=== PATIENT | male | born 1955 | race African-American/Black ===

== ENCOUNTER 2017-10-19 17:02 | Emergency (ER) | payer OTHER ==
[~2017-10-19] VITALS: Ht 170.2 cm; Wt 93.9 kg
--- NOTE | ~2017-10-19 | EKG ---
[address] [place] [employer] [address] ELECTROCARDIOGRAM REPORT Name: CHIDI CARD Room #: REG RITESH Ríos#: [id number] Admission: 10/19/17 Attend Phys: Discharge: Date of : 59 Report #: [id number] THIS REPORT FOR: //name// [facility] ED Test Date: 2017-10-19 Test Time: 17:30:30 Pat Name: CHIDI CARD Department: Room: Gender: Advanced Practice Psychiatric Nurse: kristin : 1955 Requested By: Tom Dawson Order Number: [id number] MD: Nico Maynard Measurements Intervals [place] Rate: 83 P: 32 UT: 184 QRS: -39 QRSD: 102 T: 86 QT: 350 QTc: 412 Interpretive Statements Sinus rhythm Probable left atrial enlargement Left axis deviation Borderline ST elevation, anterior leads Compared to ECG 05/24/2013 16:24:16 Left-axis deviation now present ST (T wave) deviation now present T-wave abnormality no longer present Electronically Signed On 10-19-2017 21:21:01 CDT by Nico Maynard [email or web address] <ELECTRONICALLY SIGNED> By: Nico Maynard MD 10/19/17 2121 1730 1730 Nico Maynard MD /EPI
[~2017-10-19 17:02] MED LIST: ADULTS' DAILY1 EACH; ARTIFICIAL TEAR15 M1 OPHTHALMIC; ATENOLOL 25 MG25 M1 PO; ATENOLOL 50MG T50 M1 PO; ATIVAN1 MG PO; CIPROFLOXACIN500 M1 PO; CITRATE OF MAG296 ML PO; CLONAZEPAM; CLONAZEPAM 0.50.5 M1 PO; CLONAZEPAM 1 MG1 M1 PO; COMBIVENT INH; CONSTULOSE10 GM/152; CONSTULOSE10 GM/152 PO; DEPAKENE250 MG PO; DEPAKOTE ER500 MG PO; EUCERIN CREME120 GM; EUCERIN CREME57 GM; FLEET ENEMA118 ML; GLYCOLAX POWDER17 G1; HYDROCORTISONE3011; IBUPROFEN 600600 M1 PO; LIDOCAINE; LIDODERM; LIDODERM 5%1 PATC1; LIDODERM 5%1 PATCH; LORAZEPAM 22 MG/1 ML IM; MELOXICAM7.5 MG; MINERIN CREME454 GM; MIRALAX255 GM PO; MOM PO; MULTIVITAMINS1 EAC7 PO; NEURONTIN 300300 M1 PO; NYSTATIN15 GM; OLANZAPINE15 MG PO; OLANZAPINE5 MG PO; ONE DAILY MULT1 EAC2 PO; PREPARATION H26 GM TP; PRINIVIL20 MG PO; RANITIDINE 150150 M1 PO; SELSUN BLUE 1%118 ML; SEROQUEL 25 MG25 M1 PO; SEROQUEL 50 MG50 M1 PO; TRICOR48 MG PO; ZANTAC 150MG T150 M1; ZYPREXA5 MG PO; [UNRECOGNIZED DRUG - OTHER]
[2017-10-19 18:27] LABS: ABSOLUTE NEUTROPHILS 3.4 thou/uL (1.4-8.2); BASOPHILS 0.7 % (0.0-2.0); EOSINOPHILS 1.9 % (0.0-3.0); HEMATOCRIT 35.5 % (42.0-52.0); LYMPHOCYTES 38.7 % (24.0-44.0); MCH 30.4 pg (26.0-34.0); MCHC 33.7 g/dL (28.0-37.0); MCV 90.3 fL (80.0-100.0); MONOCYTES 8.1 % (1.0-8.0); PLATELET COUNT 348 thou/uL (150-400); POLYS 50.6 % (36.0-66.0); RBC 3.93 mil/uL (4.50-6.00); RDW 13.3 % (10.5-14.5); WBC 6.8 thou/uL (4.0-11.0)
[2017-10-19 18:33] LABS: ANION GAP 1 mmol/L (7-16); BUN 20 mg/dL (7-18); CALCIUM 9.4 mg/dL (8.5-10.1); CHLORIDE 97 mmol/L (98-107); CO2 34 mmol/L (21-32); CREATININE 1.1 mg/dL (0.7-1.3); GLUCOSE 115 mg/dL (74-106); POTASSIUM 4.7 mmol/L (3.5-5.1); SODIUM 132 mmol/L (136-145)
[2017-10-19 18:41] LABS: TROPONIN-I <0.06 ng/mL (<0.06)
[2017-10-19] MEDS ORDERED: MUCINEX600 MG PO (20:43)
[2017-10-19] MEDS ORDERED: PROVENTIL HFA6.7 G1 INH (20:43)
== END 2017-10-19 21:17 ==
LOC: ER 17:02
PROVIDERS: Physician Assistant
DX: R55 Syncope and collapse (principal); R05 Cough; J45.909 Unspecified asthma, uncomplicated; I10 Essential (primary) hypertension; F31.9 Bipolar disorder, unspecified; K21.9 Gastro-esophageal reflux disease without esophagitis; Z86.73 Personal history of transient ischemic attack (TIA), and cerebral infarction without residual deficits; Z88.0 Allergy status to penicillin

== ENCOUNTER 2017-10-21 10:49 | Inpatient (IN) | payer OTHER ==
[~2017-10-21] VITALS: Ht 170.2 cm; Wt 87.6 kg
--- NOTE | ~2017-10-21 | EEG ---
[facility] [address] [place] [address] ELECTROENCEPHALOGRAM Name: CHIDI CARD Room #: 451-P [facility] IN M.R.#: [id number] Admission: 10/21/17 Attend Phys: Dustin Brink MD Discharge: Date of : 59 Report #: [id number] THIS REPORT FOR: //name// CC: Dustin Brink [facility] DATE OF SERVICE: 10/21/2017 This patient is having altered mental status and episode of unresponsiveness. EEG was done by placing the electrodes by standard 10/20 system of electrode placement. Both referential and sequential montages were used for recording. Background activity in this patient's EEG is about 8 Hz and 30 microvolt. The patient went to sleep that is associated with bilateral slowing and vertex sharp waves. Even in the baseline, EEG appeared to be intermixed with theta range slowing on both sides. Photic stimulation was unremarkable. Throughout the record, no epileptiform activity was noticed. IMPRESSION: This patient's EEG is intermixed with some theta range slowing on both sides. That is a nonspecific abnormality, which can occur with dementia, encephalopathy, effect of psychotropic medication. No active epileptiform activity was noted during this record. Thank you very much for this referral. By: 1218 1321 Eber Waterman MD /nt
--- NOTE | ~2017-10-21 | HC ---
[facility] [place] [address] CONSULTATION Name: CHIDI CARD Room #: 451-P ADM IN M.R.#: [id number] Admission: 10/21/17 Attend Phys: Dustin Brink MD Discharge: Date of : 59 Report #: [id number] THIS REPORT FOR: //name// [facility] DATE OF SERVICE: 10/22/2017 HISTORY OF PRESENT ILLNESS: This is a 62-year-old male patient who was evaluated by me for altered mental status. This person does not provide any reliable history. I reviewed the patient's record and it looks like they were not able to arouse him and they brought him to Emergency Room on 10/19. They did a CT scan of the head on him at that time, which showed no acute process. It does show prior infarct and chronic changes. He was sent home. Then, he was admitted again on with similar episode. He is responsive now, but will not follow any commands and just keep talking irrelevantly. REVIEW OF SYSTEMS: I do not know what the baseline is. The patient is not unresponsive, but he does not follow any commands and keep talking irrelevantly. He is on multiple medications including clonazepam, lorazepam and Seroquel. A 14-point review of system was carried out, but that is exclusively from the record because he will not cooperate. He has a history of asthma, bipolar disorder, dysphagia, psychosis, hypertension, reflux disease. He has a history of seizure disorder, but he will not provide any history in that regard. He has a history of CVA. He does not know how it affected him. That is the relevant 14-point review of system, I can get on him. PAST MEDICAL HISTORY: Positive for stroke. Further history is not clear. FAMILY HISTORY: Unavailable. SOCIAL HISTORY: He lives in a care home. PHYSICAL EXAMINATION: Indicate he is alert. He can tell me what month or day it is. He talks and his speech looks understandable, but irrelevant. He had no memory or fund of knowledge. He does appear to have facial palsies, more on the left side. He moves all 4 extremities to some extent, but he is weak in all 4 extremities including both upper extremities. He does also appear to be spastic. He did not understand the instruction for cerebellar sign and he did not cooperate with the fundus examination. His cranial nerve examination 2-12 otherwise looks noncontributory. He is a well-developed individual who does not have any dysmorphic features of eyes, ears and face. His vision and hearing looks adequate. His pulses are difficult to feel. He has no edema, cyanosis or jaundice. Cardiac examination is unremarkable. No respiratory difficulty or rhonchi was noted. Blood pressure is 142/82, pulse is 100, temperature is 98. [address] [address] CONSULTATION Name: CHIDI CARD Room #: 451-P [facility] IN M.R.#: [id number] Admission: 10/21/17 Attend Phys: Dustin Brink MD Discharge: Date of : 59 Report #: [id number] LABORATORY DATA: Indicate sodium trace low at 131. His white count is normal. He did have a CT scan, which showed chronic changes, but no acute changes. IMPRESSION: I am not sure what the etiology of the patient's symptom is. I think this may be his baseline. I will await rest of the workup, especially EEG, but I do not think the etiology is going to be in the brain. I will suggest working up for systemic etiology. RECOMMENDATIONS: 1. EEG. 2. After the EEG, we will decide if we do an MRI of the brain and C-spine to look for any etiology there, we will need somebody to fill up his MRI sheet, which we do not have at the moment. 3. We will see how he does with PT, OT and we will decide about further management after that. Thank you very much for this referral. By: 1031 1558 Eber Waterman MD /nestor
--- NOTE | ~2017-10-21 | EKG ---
[address] [place] [place] [address] ELECTROCARDIOGRAM REPORT Name: CHIDI CARD Room #: 451-P [facility]..#: [id number] Admission: 10/21/17 Attend Phys: Dustin Brink MD Discharge: Date of : 59 Report #: [id number] THIS REPORT FOR: //name// [facility] ED Test Date: 2017-10-21 Test Time: 11:09:05 Pat Name: CHIDI CARD Department: Room: Gender: M Senior Specialist: : 1955 Requested By: Barry Morales Order Number: [id number] MD: Jayson Perdue Measurements Intervals [place] Rate: 86 P: 30 [place]: 183 QRS: -37 QRSD: 102 T: 82 QT: 334 QTc: 400 Interpretive Statements Sinus rhythm Leftward axis Poor R wave progression Repolarization abnormality Compared to ECG 10/19/2017 17:30:30 No significant change was found Electronically Signed On 10-21-2017 16:51:17 CDT by Jayson Perdue [email or web address] <ELECTRONICALLY SIGNED> By: Jayson Perdue MD, [facility] 10/21/17 1651 1109 1109 Jayson Perdue MD, [facility] /EPI
[~2017-10-21 10:49] MED LIST changes: +MUCINEX600 MG PO; +PROVENTIL HFA6.7 G1 INH
[2017-10-21 10:50] VITALS: BP 100/68
[2017-10-21 11:28] LABS: ABSOLUTE NEUTROPHILS 6.8 thou/uL (1.4-8.2); BASOPHILS 0.6 % (0.0-2.0); EOSINOPHILS 0.9 % (0.0-3.0); HEMATOCRIT 37.4 % (42.0-52.0); HEMOGLOBIN 12.4 gm/dL (14.0-18.0); MCH 30.2 pg (26.0-34.0); MCHC 33.1 g/dL (28.0-37.0); MCV 91.1 fL (80.0-100.0); MONOCYTES 8.8 % (1.0-8.0); PLATELET COUNT 348 thou/uL (150-400); POLYS 66.7 % (36.0-66.0); RBC 4.11 mil/uL (4.50-6.00); RDW 13.8 % (10.5-14.5); WBC 10.1 thou/uL (4.0-11.0)
[2017-10-21 11:45] LABS: ANION GAP 4 mmol/L (7-16); BUN 32 mg/dL (7-18); CALCIUM 9.2 mg/dL (8.5-10.1); CHLORIDE 98 mmol/L (98-107); CO2 29 mmol/L (21-32); CREATININE 1.6 mg/dL (0.7-1.3); GLUCOSE 99 mg/dL (74-106); POTASSIUM 5.1 mmol/L (3.5-5.1); SODIUM 131 mmol/L (136-145)
[2017-10-21 11:50] LABS: ALBUMIN 3.4 g/dL (3.4-5.0); MAGNESIUM 2.5 mg/dL (1.8-2.4); SGOT 15 U/L (15-37); SGPT 19 U/L (30-65); TOTAL BILIRUBIN 0.3 mg/dL (<0.1-1.0); TOTAL PROTEIN 8.2 g/dL (6.4-8.2); TROPONIN-I <0.06 ng/mL (<0.06)
[2017-10-21 13:53] LABS: URINE BILIRUBIN NEGATIVE (Negative); URINE BLOOD TRACE (Negative); URINE COLOR YELLOW; URINE GLUCOSE-RANDOM* NEGATIVE (Negative); URINE KETONES NEGATIVE (Negative); URINE LEUKOCYTES 3+ (Negative); URINE NITRITE NEGATIVE (Negative); URINE PROTEIN (DIPSTICK) TRACE (Negative); URINE SPECIFIC GRAVITY 1.015 (1.005-1.035); URINE UROBILINOGEN 0.2 E.U./dl (0.2-1.0)
[2017-10-21 13:54] LABS: URINE CLARITY HAZY
[2017-10-21] MEDS ORDERED: NAMENDA 10 MG T10 MG PO (14:04)
[2017-10-21] MEDS ORDERED: XANAX 0.25 MG0.25 MG PO (14:05)
[2017-10-21] MEDS ORDERED: DEPAKOTE 250MG250 M1 PO ×2 (14:06→14:12)
[2017-10-21] MEDS ORDERED: TOPROL XL25 MG PO (14:08)
[2017-10-21] MEDS ORDERED: EXELON1 EAC1 PO (14:08)
[2017-10-21] MEDS ORDERED: VIMPAT50 MG PO (14:09)
[2017-10-21] MEDS ORDERED: XANAX 0.5 MG0.5 M1 PO (14:10)
[2017-10-21] MEDS ORDERED: COMBIVENT INH (14:10)
[2017-10-21] MEDS ORDERED: TRAZODONE HCL50 MG PO (14:12)
[2017-10-21 14:13] LABS: CASTS None Seen /LPF (None Seen); MUCUS 0-3 Light strn/LPF (None Seen); SQUAMOUS None Seen /LPF (0-3); URINE RBC 0-2 Rare /HPF (0-2); URINE WBC >25 Many /HPF (0-5)
[2017-10-21] MEDS ORDERED: TYLENOL325 MG PO (14:13)
[2017-10-21 14:14] LABS: BACTERIA >30 Many /HPF (None Seen); CRYSTALS None Seen /LPF (None Seen); WBC CLUMPS Many (None Seen)
[2017-10-21 14:21] LABS: CHOLESTEROL 171 mg/dL (<200); HDL CHOLESTEROL 40 mg/dL (>40); LDL CHOLESTEROL 107 mg/dL (<100); TC:HDL 4.3 Ratio (Not establshd); TRIGLYCERIDE 121 mg/dL (<150); VLDL 24 mg/dL (<40)
[2017-10-21 14:47] LABS: TSH 0.426 uIU/mL (0.358-3.740)
[2017-10-21 15:00] VITALS: BP 103/65
[2017-10-21 15:38] VITALS: BP 121/64
[2017-10-21 16:40] VITALS: BP 121/94
[2017-10-21 19:21] VITALS: BP 103/64
[2017-10-22 03:30] VITALS: BP 138/76
[2017-10-22 08:00] VITALS: BP 142/82
[2017-10-22 16:00] VITALS: BP 140/76
[2017-10-22 19:46] VITALS: BP 130/87
[2017-10-23 06:34] VITALS: BP 107/73
[2017-10-23 08:00] VITALS: BP 163/81
[2017-10-23] MEDS ORDERED: CEFUROXIME250 MG PO (08:21)
[2017-10-23 16:27] VITALS: BP 135/72
== END 2017-10-23 18:29 | DRG 177 ==
LOC: ER 10:49 → 4W 13:27 → EROBS 13:27 → 4W 15:37
PROVIDERS: Emergency Medicine; Hospitalist
DX: J69.0 Pneumonitis due to inhalation of food and vomit (principal); G92 Toxic encephalopathy; J98.11 Atelectasis; N17.9 Acute kidney failure, unspecified; J45.909 Unspecified asthma, uncomplicated; F31.9 Bipolar disorder, unspecified; K21.9 Gastro-esophageal reflux disease without esophagitis; N18.9 Chronic kidney disease, unspecified; F41.9 Anxiety disorder, unspecified; I12.9 Hypertensive chronic kidney disease with stage 1 through stage 4 chronic kidney disease, or unspecified chronic kidney disease; E66.9 Obesity, unspecified; Z68.30 Body mass index [BMI] 30.0-30.9, adult; Z87.891 Personal history of nicotine dependence; Z86.73 Personal history of transient ischemic attack (TIA), and cerebral infarction without residual deficits; Z79.899 Other long term (current) drug therapy; Z88.0 Allergy status to penicillin; Z88.8 Allergy status to other drugs, medicaments and biological substances
CPT/HCPCS: 10040

== ENCOUNTER 2017-10-24 18:33 | Inpatient (IN) | payer OTHER ==
[~2017-10-24] VITALS: Ht 170.2 cm; Wt 94.6 kg
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
--- NOTE | ~2017-10-24 | EEG ---
[facility] [place] [address] ELECTROENCEPHALOGRAM Name: CHIDI CARD Room #: 363-P [facility] IN M.R.#: [id number] Admission: 10/24/17 Attend Phys: Dustin Brink MD Discharge: Date of : 59 Report #: [id number] THIS REPORT FOR: //name// CC: Glenny Hartman DATE OF SERVICE: 10/25/2017 This patient is being evaluated for altered mental status. EEG is done by placing the electrode by standard 10-20 system of electrode placement. Both referential and sequential montages were used for recording. Background activity in this patient's EEG is about 8 Hz and 30 microvolt. It is intermixed with theta range slowing on both sides. The patient goes to sleep that is associated with bilaterally symmetrical sleep spindle and vertex sharp waves. Photic stimulation is unremarkable. Throughout the record, no active epileptiform activity was noticed. IMPRESSION: This patient's EEG is intermixed with some theta range slowing, but no active epileptiform activity was noticed. Thank you very much for this referral. <ELECTRONICALLY SIGNED> By: Eber Waterman MD 10/31/17 1424 1734 1747 Eber Waterman MD /nt
--- NOTE | ~2017-10-24 | EKG ---
[address] [place] [address] ELECTROCARDIOGRAM REPORT Name: CHIDI CARD Room #: 363-P ADM IN M.R.#: [id number] Admission: 10/24/17 Attend Phys: Dustin Brink MD Discharge: Date of : 59 Report #: [id number] THIS REPORT FOR: //name// [facility] ED Test Date: 2017-10-24 Test Time: 18:45:32 Pat Name: CHIDI CARD Department: Room: Gender: M Drill Press Operator Helper: MICHELLE : 1955 Requested By: Barry Morales Order Number: [id number] MD: Jayson Perdue Measurements Intervals [place] Rate: 73 P: 27 [place]: 183 QRS: -27 QRSD: 95 T: 52 QT: 349 QTc: 385 Interpretive Statements Sinus rhythm Borderline left axis deviation Abnormal R-wave progression, early transition Baseline wander in lead(s) V1 Compared to ECG 10/21/2017 11:09:05 Poor R-wave progression no longer present Electronically Signed On 10-27-2017 9:09:49 CDT by Jayson Perdue [email or web address] <ELECTRONICALLY SIGNED> By: Jayson Perdue MD, [facility] 10/27/17 0909 1845 1845 Jayson Perdue MD, [facility] /EPI
[~2017-10-24 18:33] MED LIST changes: +CEFUROXIME250 MG PO; +DEPAKOTE 250MG250 M1 PO; +EXELON1 EAC1 PO; +NAMENDA 10 MG T10 MG PO; +TOPROL XL25 MG PO; +TRAZODONE HCL50 MG PO; +TYLENOL325 MG PO; +VIMPAT50 MG PO; +XANAX 0.25 MG0.25 MG PO; +XANAX 0.5 MG0.5 M1 PO
[2017-10-24 18:34] VITALS: BP 74/45
[2017-10-24 19:51] LABS: ABSOLUTE NEUTROPHILS 6.3 thou/uL (1.4-8.2); BASOPHILS 0.7 % (0.0-2.0); EOSINOPHILS 0.4 % (0.0-3.0); HEMATOCRIT 34.4 % (42.0-52.0); HEMOGLOBIN 11.8 gm/dL (14.0-18.0); LYMPHOCYTES 20.5 % (24.0-44.0); MCH 30.5 pg (26.0-34.0); MCHC 34.4 g/dL (28.0-37.0); MCV 88.6 fL (80.0-100.0); MONOCYTES 9.3 % (1.0-8.0); PLATELET COUNT 399 thou/uL (150-400); POLYS 69.1 % (36.0-66.0); RBC 3.88 mil/uL (4.50-6.00); RDW 13.4 % (10.5-14.5); WBC 9.1 thou/uL (4.0-11.0)
[2017-10-24 19:55] LABS: ANION GAP 9 mmol/L (7-16); BUN 45 mg/dL (7-18); CALCIUM 9.3 mg/dL (8.5-10.1); CHLORIDE 97 mmol/L (98-107); CO2 28 mmol/L (21-32); CREATININE 2.5 mg/dL (0.7-1.3); GLUCOSE 100 mg/dL (74-106); POTASSIUM 4.6 mmol/L (3.5-5.1); SODIUM 134 mmol/L (136-145)
[2017-10-24 20:04] LABS: ALBUMIN 3.5 g/dL (3.4-5.0); MAGNESIUM 2.3 mg/dL (1.8-2.4); SGOT 26 U/L (15-37); SGPT 23 U/L (30-65); TOTAL BILIRUBIN 0.2 mg/dL (<0.1-1.0); TOTAL PROTEIN 8.5 g/dL (6.4-8.2); TROPONIN-I <0.06 ng/mL (<0.06)
[2017-10-24 20:10] LABS: BE(vivo) -2.5 mmol/L (-2 to +3); HCO3 24.5 mmol/L (22.0-26.0); PCO2 52.1 mmHg (35.0-45.0); PO2 87.6 mmHg (80.0-100.0); sO2 95.6 % (92.0-98.0)
[2017-10-24 21:16] VITALS: BP 93/45
[2017-10-24 21:24] LABS: URINE BILIRUBIN NEGATIVE (Negative); URINE BLOOD NEGATIVE (Negative); URINE CLARITY CLEAR; URINE COLOR YELLOW; URINE GLUCOSE-RANDOM* NEGATIVE (Negative); URINE KETONES TRACE (Negative); URINE LEUKOCYTES-REFLEX 2+ (Negative); URINE NITRITE-REFLEX NEGATIVE (Negative); URINE PROTEIN (DIPSTICK) NEGATIVE (Negative); URINE SPECIFIC GRAVITY 1.015 (1.005-1.035); URINE UROBILINOGEN 0.2 E.U./dl (0.2-1.0)
[2017-10-24 21:33] LABS: AMP/METHAMP Negative (Negative); BARBITURATES Negative (Negative); BENZODIAZEPINES POSITIVE (Negative); COCAINE Negative (Negative); METHADONE Negative (Negative); OPIATES Negative (Negative); PCP Negative (Negative)
[2017-10-24 21:34] LABS: CASTS None Seen /LPF (None Seen); MUCUS None Seen strn/LPF (None Seen); SQUAMOUS None Seen /LPF (0-3); URINE RBC None Seen /HPF (0-2); WBC CLUMPS Few (None Seen)
[2017-10-24 21:35] LABS: BACTERIA-REFLEX 1-9 Few /HPF (None Seen); CRYSTALS None Seen /LPF (None Seen); HYALINE CASTS 0-3 Few /LPF (None Seen)
[2017-10-25] VITALS (7 sets, daily range): BP systolic 90–142; BP diastolic 57–83
[2017-10-25 02:29] LABS: HCO3 24.1 mmol/L (22.0-26.0); PCO2 52.3 mmHg (35.0-45.0); PO2 74.3 mmHg (80.0-100.0); pH 7.282 (7.360-7.450)
[2017-10-25 08:27] LABS: BE(vivo) -3.7 mmol/L (-2 to +3); HCO3 22.5 mmol/L (22.0-26.0); PCO2 45.4 mmHg (35.0-45.0); PO2 62.6 mmHg (80.0-100.0); pH 7.313 (7.360-7.450)
[2017-10-25 11:29] LABS: HEMOGLOBIN 11.1 gm/dL (14.0-18.0); MCH 30.7 pg (26.0-34.0); MCHC 34.7 g/dL (28.0-37.0); MCV 88.6 fL (80.0-100.0); RBC 3.62 mil/uL (4.50-6.00); RDW 13.4 % (10.5-14.5); WBC 7.1 thou/uL (4.0-11.0)
[2017-10-25 11:37] LABS: CALCIUM 8.7 mg/dL (8.5-10.1)
[2017-10-25 12:59] LABS: BE(vivo) -3.1 mmol/L (-2 to +3); HCO3 22.3 mmol/L (22.0-26.0); PCO2 41.3 mmHg (35.0-45.0); PO2 83.1 mmHg (80.0-100.0); pH 7.351 (7.360-7.450); sO2 95.8 % (92.0-98.0)
[2017-10-25 16:49] LABS: BE(vivo) -0.6 mmol/L (-2 to +3); HCO3 24.5 mmol/L (22.0-26.0); PCO2 41.9 mmHg (35.0-45.0); PO2 55.3 mmHg (80.0-100.0); pH 7.384 (7.360-7.450); sO2 88.4 % (92.0-98.0)
[2017-10-26 04:15] LABS: HEMATOCRIT 30.8 % (42.0-52.0); HEMOGLOBIN 10.7 gm/dL (14.0-18.0); MCH 30.6 pg (26.0-34.0); MCHC 34.8 g/dL (28.0-37.0); MCV 87.8 fL (80.0-100.0); RBC 3.51 mil/uL (4.50-6.00); RDW 13.3 % (10.5-14.5); WBC 7.3 thou/uL (4.0-11.0)
[2017-10-26 04:27] LABS: CALCIUM 8.7 mg/dL (8.5-10.1); CREATININE 0.9 mg/dL (0.7-1.3); MAGNESIUM 1.8 mg/dL (1.8-2.4); POTASSIUM 3.9 mmol/L (3.5-5.1)
[2017-10-26 04:40] VITALS: BP 132/97
[2017-10-26 07:23] LABS: HCO3 23.9 mmol/L (22.0-26.0); PCO2 40.4 mmHg (35.0-45.0); pH 7.389 (7.360-7.450); sO2 92.3 % (92.0-98.0)
[2017-10-26 08:03] VITALS: BP 124/98
[2017-10-26 12:10] VITALS: BP 132/85
[2017-10-26 17:30] VITALS: BP 135/69
[2017-10-26 19:43] VITALS: BP 135/63
[2017-10-27 05:00] VITALS: BP 112/64
[2017-10-27 05:29] LABS: HEMATOCRIT 31.7 % (42.0-52.0); HEMOGLOBIN 10.9 gm/dL (14.0-18.0); MCH 30.4 pg (26.0-34.0); MCHC 34.5 g/dL (28.0-37.0); RBC 3.6 mil/uL (4.50-6.00); RDW 13.5 % (10.5-14.5)
[2017-10-27 05:39] LABS: CALCIUM 9.2 mg/dL (8.5-10.1); CREATININE 0.8 mg/dL (0.7-1.3); MAGNESIUM 1.7 mg/dL (1.8-2.4)
[2017-10-27 07:36] VITALS: BP 109/64
[2017-10-27 11:15] VITALS: BP 128/76
[2017-10-27 16:26] VITALS: BP 121/61
[2017-10-27 20:00] VITALS: BP 133/69
[2017-10-28 03:55] VITALS: BP 111/61
[2017-10-28 05:48] LABS: HEMOGLOBIN 9.8 gm/dL (14.0-18.0); MCH 31.1 pg (26.0-34.0); MCHC 34.9 g/dL (28.0-37.0); MCV 89.1 fL (80.0-100.0); RBC 3.14 mil/uL (4.50-6.00); RDW 13.2 % (10.5-14.5); WBC 8.2 thou/uL (4.0-11.0)
[2017-10-28 06:05] LABS: CALCIUM 8.6 mg/dL (8.5-10.1); CREATININE 0.7 mg/dL (0.7-1.3); MAGNESIUM 1.6 mg/dL (1.8-2.4); POTASSIUM 3.1 mmol/L (3.5-5.1)
[2017-10-28 06:54] LABS: BE(vivo) 3.7 mmol/L (-2 to +3); HCO3 30.4 mmol/L (22.0-26.0); PCO2 57.4 mmHg (35.0-45.0); PO2 75.1 mmHg (80.0-100.0); pH 7.342 (7.360-7.450)
[2017-10-28 07:31] VITALS: BP 128/77
[2017-10-28 11:50] VITALS: BP 138/84
[2017-10-28 16:11] VITALS: BP 152/59
[2017-10-28 21:10] VITALS: BP 146/94
[2017-10-29 04:37] VITALS: BP 131/81
[2017-10-29 04:47] LABS: HEMATOCRIT 27.2 % (42.0-52.0); HEMOGLOBIN 9.5 gm/dL (14.0-18.0); MCH 30.8 pg (26.0-34.0); MCHC 34.8 g/dL (28.0-37.0); MCV 88.7 fL (80.0-100.0); RBC 3.07 mil/uL (4.50-6.00); RDW 13.2 % (10.5-14.5); WBC 7.3 thou/uL (4.0-11.0)
[2017-10-29 05:08] LABS: CALCIUM 8.5 mg/dL (8.5-10.1); CREATININE 0.7 mg/dL (0.7-1.3); MAGNESIUM 1.5 mg/dL (1.8-2.4); POTASSIUM 3.2 mmol/L (3.5-5.1)
[2017-10-29 05:25] LABS: BE(vivo) 3.1 mmol/L (-2 to +3); HCO3 29.1 mmol/L (22.0-26.0); PCO2 50.9 mmHg (35.0-45.0); PO2 70.8 mmHg (80.0-100.0); pH 7.375 (7.360-7.450); sO2 93.7 % (92.0-98.0)
[2017-10-29 08:29] VITALS: BP 132/96
[2017-10-29 11:30] VITALS: BP 155/98
[2017-10-29 14:45] VITALS: BP 130/84
[2017-10-29 20:35] VITALS: BP 129/80
[2017-10-30 05:00] VITALS: BP 133/84
[2017-10-30 07:42] VITALS: BP 158/95
[2017-10-30 07:49] VITALS: BP 142/80
[2017-10-30 11:10] VITALS: BP 141/81
[2017-10-30 15:10] VITALS: BP 150/89
[2017-10-30 19:19] VITALS: BP 130/70
[2017-10-31 04:06] VITALS: BP 153/54
[2017-10-31 08:30] VITALS: BP 138/68
[2017-10-31] MEDS ORDERED: LEVAQUIN 250 M250 MG PO (13:06)
[2017-10-31] MEDS ORDERED: NEURONTIN 400400 M1 PO (13:07)
== END 2017-10-31 14:33 | DRG 70 ==
LOC: ER 18:33 → EROBS 20:50 → 3W 20:50
PROVIDERS: Emergency Medicine; Internal Medicine; Internal Medicine Pulmonary Disease; Nurse Practitioner Acute Care
PROC: 5A09357 Assistance with Respiratory Ventilation, Less than 24 Consecutive Hours, Continuous Positive Airway Pressure (ICD-10-PCS; principal; 2017-10-25)
DX: G93.40 Encephalopathy, unspecified (principal); J96.01 Acute respiratory failure with hypoxia; J18.9 Pneumonia, unspecified organism; J96.02 Acute respiratory failure with hypercapnia; N17.9 Acute kidney failure, unspecified; E87.2 Acidosis; N39.0 Urinary tract infection, site not specified; J98.11 Atelectasis; I42.9 Cardiomyopathy, unspecified; J44.0 Chronic obstructive pulmonary disease with (acute) lower respiratory infection; F31.9 Bipolar disorder, unspecified; K59.00 Constipation, unspecified; K21.9 Gastro-esophageal reflux disease without esophagitis; E78.5 Hyperlipidemia, unspecified; G62.9 Polyneuropathy, unspecified; E86.0 Dehydration; I95.9 Hypotension, unspecified; F41.9 Anxiety disorder, unspecified; M19.90 Unspecified osteoarthritis, unspecified site; I12.9 Hypertensive chronic kidney disease with stage 1 through stage 4 chronic kidney disease, or unspecified chronic kidney disease; N18.9 Chronic kidney disease, unspecified; G47.33 Obstructive sleep apnea (adult) (pediatric); G40.909 Epilepsy, unspecified, not intractable, without status epilepticus; G93.89 Other specified disorders of brain; D64.9 Anemia, unspecified; J84.10 Pulmonary fibrosis, unspecified; Z86.73 Personal history of transient ischemic attack (TIA), and cerebral infarction without residual deficits; Z88.0 Allergy status to penicillin; Z88.8 Allergy status to other drugs, medicaments and biological substances; Z79.899 Other long term (current) drug therapy
CPT/HCPCS: 10879

== ENCOUNTER 2018-04-09 09:51 | Inpatient (IN) | payer OTHER ==
[~2018-04-09] VITALS: Ht 170.2 cm; Wt 82.9 kg
--- NOTE | ~2018-04-09 | EKG ---
[address] [address] ELECTROCARDIOGRAM REPORT Name: CHIDI CARD Room #: 454-P ADM IN M.R.#: [id number] Admission: 04/09/18 Attend Phys: Dustin Brink MD Discharge: Date of : 59 Report #: [id number] THIS REPORT FOR: //name// [facility] ED Test Date: 2018-04-09 Test Time: 10:09:10 Pat Name: CHIDI CARD Department: Room: 454 Gender: M Occupational Therapy Director: ravi : 1955 Requested By: Ava Newman Order Number: [id number] MD: Nico Maynard Measurements Intervals [place] Rate: 58 P: 18 [place]: 212 QRS: -24 QRSD: 97 T: 62 QT: 384 QTc: 378 Interpretive Statements Sinus rhythm Borderline prolonged CA interval Borderline left axis deviation Compared to ECG 10/24/2017 18:45:32 Electronically Signed On 04-09-2018 13:16:50 [employer]QUAD LEAD[employer] by Nico Maynard [email or web address] <ELECTRONICALLY SIGNED> By: Nico Maynard MD 04/09/18 1316 D: [id number] 100 Nico Maynard MD /ANNELISE
[~2018-04-09 09:51] MED LIST changes: +LEVAQUIN 250 M250 MG PO; +NEURONTIN 400400 M1 PO
[2018-04-09 09:54] VITALS: BP 113/94
[2018-04-09 10:09] LABS: URINE BILIRUBIN NEGATIVE (Negative); URINE BLOOD TRACE (Negative); URINE CLARITY CLOUDY; URINE COLOR YELLOW; URINE GLUCOSE-RANDOM* NEGATIVE (Negative); URINE KETONES NEGATIVE (Negative); URINE LEUKOCYTES 3+ (Negative); URINE NITRITE POSITIVE (Negative); URINE PROTEIN (DIPSTICK) NEGATIVE (Negative); URINE SPECIFIC GRAVITY 1.015 (1.005-1.035); URINE UROBILINOGEN 0.2 E.U./dl (0.2-1.0)
[2018-04-09 10:27] LABS: ABSOLUTE NEUTROPHILS 4.2 thou/uL (1.4-8.2); BASOPHILS 1.1 % (0.0-2.0); EOSINOPHILS 2.1 % (0.0-3.0); HEMATOCRIT 37.7 % (42.0-52.0); HEMOGLOBIN 12.6 gm/dL (14.0-18.0); MCH 29.6 pg (26.0-34.0); MCHC 33.5 g/dL (28.0-37.0); MCV 88.4 fL (80.0-100.0); MONOCYTES 7.5 % (1.0-8.0); PLATELET COUNT 418 thou/uL (150-400); POLYS 56.3 % (36.0-66.0); RBC 4.27 mil/uL (4.50-6.00); RDW 14.6 % (10.5-14.5); WBC 7.5 thou/uL (4.0-11.0)
[2018-04-09 10:34] LABS: CASTS None Seen /LPF (None Seen); CRYSTALS None Seen /LPF (None Seen); SQUAMOUS None Seen /LPF (0-3); URINE RBC 0-2 Rare /HPF (0-2); URINE WBC >25 Many /HPF (0-5)
[2018-04-09 10:35] LABS: ANION GAP 5 mmol/L (7-16); BUN 32 mg/dL (7-18); CALCIUM 10.1 mg/dL (8.5-10.1); CHLORIDE 96 mmol/L (98-107); CO2 31 mmol/L (21-32); CREATININE 1.8 mg/dL (0.7-1.3); GLUCOSE 92 mg/dL (74-106); POTASSIUM 4.8 mmol/L (3.5-5.1); SODIUM 132 mmol/L (136-145)
[2018-04-09 10:36] LABS: BACTERIA >30 Many /HPF (None Seen)
[2018-04-09 10:43] LABS: ALBUMIN 3.7 g/dL (3.4-5.0); SGOT 12 U/L (15-37); SGPT 18 U/L (30-65); TOTAL BILIRUBIN 0.3 mg/dL (<0.1-1.0); TOTAL PROTEIN 8.7 g/dL (6.4-8.2); TROPONIN-I <0.06 ng/mL (<0.06)
[2018-04-09 12:29] VITALS: BP 103/52
[2018-04-09] MEDS ORDERED: TYLENOL325 MG PO ×2 (13:21→13:36)
[2018-04-09 13:27] VITALS: BP 107/68
[2018-04-09] MEDS ORDERED: NEURONTIN600 MG PO (13:30)
[2018-04-09] MEDS ORDERED: VITAMIN D1000 UNIT PO (13:38)
[2018-04-09] MEDS ORDERED: COMBIVENT INH (13:40)
[2018-04-09] MEDS ORDERED: IRON325 PO (13:41)
[2018-04-09] MEDS ORDERED: ANTI-ITCH28 G1 TOP (13:42)
[2018-04-09] MEDS ORDERED: OLANZAPINE15 MG PO (13:43)
[2018-04-09] MEDS ORDERED: LISINOPRIL20 MG PO (13:43)
[2018-04-09] MEDS ORDERED: TRAZODONE HCL50 MG PO (13:44)
[2018-04-09 15:06] VITALS: BP 141/50
[2018-04-09 19:34] VITALS: BP 116/77
[2018-04-10 03:12] VITALS: BP 112/65
[2018-04-10 06:42] LABS: ABSOLUTE NEUTROPHILS 2.7 thou/uL (1.4-8.2); BASOPHILS 0.9 % (0.0-2.0); EOSINOPHILS 2.3 % (0.0-3.0); HEMATOCRIT 32.9 % (42.0-52.0); HEMOGLOBIN 11.2 gm/dL (14.0-18.0); LYMPHOCYTES 42.3 % (24.0-44.0); MCH 30.3 pg (26.0-34.0); MCHC 33.9 g/dL (28.0-37.0); MCV 89.2 fL (80.0-100.0); MONOCYTES 7.5 % (1.0-8.0); PLATELET COUNT 345 thou/uL (150-400); RBC 3.69 mil/uL (4.50-6.00); RDW 14.7 % (10.5-14.5); WBC 5.8 thou/uL (4.0-11.0)
[2018-04-10 07:18] VITALS: BP 123/74
[2018-04-10 07:18] LABS: CALCIUM 9.1 mg/dL (8.5-10.1); CREATININE 0.7 mg/dL (0.7-1.3); MAGNESIUM 1.8 mg/dL (1.8-2.4)
[2018-04-10 15:45] VITALS: BP 140/70
[2018-04-11 05:11] VITALS: BP 120/61
[2018-04-11 08:25] VITALS: BP 132/69
[2018-04-11 16:08] VITALS: BP 132/87
[2018-04-11 19:51] VITALS: BP 126/74
[2018-04-12 03:43] VITALS: BP 132/79
[2018-04-12 07:59] VITALS: BP 128/70
[2018-04-12 09:36] LABS: HEMATOCRIT 33.9 % (42.0-52.0); HEMOGLOBIN 11.5 gm/dL (14.0-18.0); MCH 30.2 pg (26.0-34.0); MCV 88.8 fL (80.0-100.0); RBC 3.82 mil/uL (4.50-6.00); RDW 13.9 % (10.5-14.5); WBC 6.3 thou/uL (4.0-11.0)
[2018-04-12 09:46] LABS: CALCIUM 9.2 mg/dL (8.5-10.1); CREATININE 0.8 mg/dL (0.7-1.3); MAGNESIUM 1.6 mg/dL (1.8-2.4); POTASSIUM 3.8 mmol/L (3.5-5.1)
[2018-04-12 15:13] VITALS: BP 125/67
[2018-04-12 19:00] VITALS: BP 117/75
[2018-04-13 03:45] VITALS: BP 107/65
[2018-04-13 09:33] VITALS: BP 148/97
[2018-04-13] MEDS ORDERED: KEFLEX500 M1 PO (12:33)
[2018-04-13] MEDS ORDERED: PROBIOTIC1 EAC1 PO (12:33)
== END 2018-04-13 15:25 | DRG 91 ==
LOC: ER 09:51 → EROBS 10:58 → 4W 10:58
PROVIDERS: Internal Medicine; Nurse Practitioner; Physician Assistant
DX: G92 Toxic encephalopathy (principal); N17.0 Acute kidney failure with tubular necrosis; N39.0 Urinary tract infection, site not specified; F03.90 Unspecified dementia, unspecified severity, without behavioral disturbance, psychotic disturbance, mood disturbance, and anxiety; E78.5 Hyperlipidemia, unspecified; F31.9 Bipolar disorder, unspecified; K21.9 Gastro-esophageal reflux disease without esophagitis; M19.90 Unspecified osteoarthritis, unspecified site; I12.9 Hypertensive chronic kidney disease with stage 1 through stage 4 chronic kidney disease, or unspecified chronic kidney disease; F41.9 Anxiety disorder, unspecified; J44.9 Chronic obstructive pulmonary disease, unspecified; I95.9 Hypotension, unspecified; E86.0 Dehydration; G40.909 Epilepsy, unspecified, not intractable, without status epilepticus; G47.33 Obstructive sleep apnea (adult) (pediatric); N18.9 Chronic kidney disease, unspecified; G62.9 Polyneuropathy, unspecified; E66.9 Obesity, unspecified; Z68.28 Body mass index [BMI] 28.0-28.9, adult; Z99.3 Dependence on wheelchair; Z87.820 Personal history of traumatic brain injury; Z79.899 Other long term (current) drug therapy; Z88.0 Allergy status to penicillin; Z88.8 Allergy status to other drugs, medicaments and biological substances
CPT/HCPCS: 10045; 10047

== ENCOUNTER → 2018-11-05 | Outpatient (CLI) | payer OTHER ==
[~2018-11-05] MED LIST changes: +ANTI-ITCH28 G1 TOP; +IRON325 PO; +KEFLEX500 M1 PO; +LISINOPRIL20 MG PO; +NEURONTIN600 MG PO; +PROBIOTIC1 EAC1 PO; +VITAMIN D1000 UNIT PO
== END ==
LOC: RAD 09:25 → SPEECH 09:25
DX: R13.12 Dysphagia, oropharyngeal phase (principal); I10 Essential (primary) hypertension; E78.5 Hyperlipidemia, unspecified; F41.9 Anxiety disorder, unspecified; G40.89 Other seizures; Z79.899 Other long term (current) drug therapy; Z87.820 Personal history of traumatic brain injury